=== PATIENT | male | born 1980 | race Hispanic/Latino ===

== ENCOUNTER 2017-06-23 11:24 | Emergency (ER) | payer OTHER ==
[2017-06-23 11:59] VITALS: PULSE 77; RESP 18; TEMP 97; O2SAT 100
[2017-06-23] MEDS ORDERED: Tdap Vaccine 0.5 ml Vial (10-64 yrs) IM ONE ×2 (12:33→12:58)
--- NOTE | 2017-06-23 12:53 | RAD ---
PROCEDURE: Radiographs of the Left Shoulder HISTORY: pain COMPARISON: No prior. FINDINGS: BONES: No acute fracture or destructive bony lesion identified. JOINTS: Normal. Glenohumeral and acromioclavicular joints preserved. No osteoarthritis. SOFT TISSUES: Normal. OTHER FINDINGS: None. IMPRESSION: Unremarkable radiographs of the left shoulder.
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
== END 2017-06-23 14:30 | disposition home or self-care (01) ==
LOC: H.ER 11:24
DX: S40.012A Contusion of left shoulder, initial encounter (principal); V13.4XXA Pedal cycle driver injured in collision with car, pick-up truck or van in traffic accident, initial encounter; Y93.55 Activity, bike riding; Y92.410 Unspecified street and highway as the place of occurrence of the external cause